=== PATIENT | female | born 1980 | race Caucasian/White ===

== ENCOUNTER 2018-07-12 10:47 | Outpatient (CLI) | payer OTHER | END 2018-07-12 23:59 | disposition home or self-care (01) | LOC: RAD 10:47 | PROVIDERS: ATTEND Chiropractor | DX: M51.16 Intervertebral disc disorders with radiculopathy, lumbar region (principal); M51.26 Other intervertebral disc displacement, lumbar region | CPT/HCPCS: 72148 ==

== ENCOUNTER 2018-12-14 09:45 | Outpatient (CLI) | payer OTHER ==
[~2018-12-14 09:45] MED LIST: HYDR-4353 PO; ONDA4TAB6 PO
== END 2018-12-14 23:59 | disposition home or self-care (01) ==
LOC: RAD 09:45
PROVIDERS: ATTEND Family Medicine
DX: N85.4 Malposition of uterus (principal)
CPT/HCPCS: 76830; 76856

== ENCOUNTER 2019-02-25 16:30 | Emergency (ER) | payer SELFPAY ==
[~2019-02-25] VITALS: Ht 167.6 cm; Wt 100.0 kg
[~2019-02-25 16:30] MED LIST changes: -HYDR-4353 PO
[2019-02-25 16:36] VITALS: BP 141/87
[2019-02-25] MEDS ORDERED: LIDOcaine 5% patch TP STA (16:52)
[2019-02-25] MEDS ORDERED: ketorolac tromethamine 15mg/ml inj. IM ONE (16:55)
[2019-02-25] MEDS ORDERED: CYCL-1 PO (17:06)
[2019-02-25] MEDS ORDERED: IBUP-1985 PO (17:06)
== END 2019-02-25 17:22 | disposition home or self-care (01) ==
LOC: ER 16:30
DX: M54.41 Lumbago with sciatica, right side (principal); G89.29 Other chronic pain; Z88.8 Allergy status to other drugs, medicaments and biological substances
CPT/HCPCS: 96372; 99283; J1885

== ENCOUNTER 2019-03-11 10:22 | Outpatient (CLI) | payer OTHER ==
[~2019-03-11 10:22] MED LIST changes: +CYCL-1 PO; +IBUP-1985 PO
== END 2019-03-11 23:59 | disposition home or self-care (01) ==
LOC: RAD 10:22
DX: M67.472 Ganglion, left ankle and foot (principal)
CPT/HCPCS: 73718

== ENCOUNTER 2019-04-15 11:12 | Emergency (ER) | payer OTHER ==
[~2019-04-15] VITALS: Ht 167.6 cm; Wt 105.0 kg
[2019-04-15 11:22] VITALS: BP 147/101
[2019-04-15 11:47] LABS: CLARITY,URINE SLIGHTLY CLOUDY (Clear); COLOR,URINE YELLOW (Yellow); GLUCOSE, URINE NEGATIVE (Neg); KETONES,URINE NEGATIVE (Neg); LEUKOCYTE ESTERASE ,URINE NEGATIVE (Neg); NITRITES, URINE NEGATIVE (Neg); OCCULT BLOOD,URINE NEGATIVE (Neg); PROTEIN,URINE NEGATIVE (Neg); UROBILINOGEN,URINE 0.2 E.U/dL (0.2-1.0)
[2019-04-15 11:53] LABS: UA COLLECTION TYPE CLN CATCH MIDSTREAM
[2019-04-15 11:59] LABS: MUCUS STRANDS FEW /LPF (Neg); SQUAMOUS EPITHELIAL CELL,UR MANY /LPF (FEW)
[2019-04-15 12:00] LABS: BACTERIA,URINE FEW /HPF (Neg); RBC,URINE NONE SEEN /HPF (0-2); WBC,URINE 0-4 /HPF (0-4)
[2019-04-15] MEDS ORDERED: ketorolac trometh. 30mg/ml inj. IM ONE (12:00)
[2019-04-15 12:02] LABS: BASOPHILS % (AUTO) 0.5 % (0-1); EOSINOPHILS # (AUTO) 0.3 X10'3 (0-0.9); EOSINOPHILS % (AUTO) 4.7 % (0-6); HEMATOCRIT 37.3 % (35.0-45.0); HEMOGLOBIN 12.9 g/dl (12.0-16.0); LYMPHOCYTES # (AUTO) 1.1 X10'3 (1.1-4.8); LYMPHOCYTES % (AUTO) 20.1 % (21-51); MEAN CORPUSCULAR HGB CONC 34.6 g/dL (33.0-36.5); MEAN CORPUSCULAR VOLUME 86.7 FL (78-98); MEAN PLATELET VOLUME 7.9 FL (7.4-10.4); MONOCYTES # (AUTO) 0.3 X10'3 (0-0.9); MONOCYTES % (AUTO) 5.1 % (2-12); NEUTROPHILS # (AUTO) 3.8 X10'3 (1.8-7.7); NEUTROPHILS % (AUTO) 69.6 % (42-75); PLATELET COUNT 164 X10'3 (140-440); RED CELL DISTRIBUTION WIDTH 13.1 % (11.5-14.5); WHITE BLOOD COUNT 5.5 X10'3 (4.5-11.0)
[2019-04-15 12:17] LABS: ALANINE AMINOTRANSFERASE 57 U/L (12-78); ALBUMIN 3.7 G/DL (3.4-5.0); ALBUMIN/GLOBULIN RATIO 1.1 (1.1-1.5); ALKALINE PHOSPHATASE 90 IU/L (46-116); ANION GAP 8 (8-16); ASPARTATE AMINO TRANSFERASE 40 U/L (10-37); BILIRUBIN,TOTAL 0.3 MG/DL (0.1-1.0); BLOOD UREA NITROGEN 12 MG/DL (7-18); BUN/CREATININE RATIO 14.8 (6.6-38.0); CHLORIDE 102 MMOL/L (99-107); CREATININE 0.81 MG/DL (0.40-0.90); GLUCOSE 113 MG/DL (70-104); POTASSIUM 4.2 MMOL/L (3.5-5.1); SODIUM 138 MMOL/L (135-145); TOTAL CARBON DIOXIDE 28.3 MMOL/L (24-32); TOTAL PROTEIN 7.1 G/DL (6.4-8.2); eGFR 79 ML/MIN
== END 2019-04-15 13:10 | disposition home or self-care (01) ==
LOC: ER 11:12
DX: R10.30 Lower abdominal pain, unspecified (principal); R35.0 Frequency of micturition; G89.29 Other chronic pain; Z98.890 Other specified postprocedural states; Z88.8 Allergy status to other drugs, medicaments and biological substances; Z79.899 Other long term (current) drug therapy
CPT/HCPCS: 36415; 76775; 80053; 81001; 85025; 96372; 99284; J1885

== ENCOUNTER 2019-10-08 10:10 | Day surgery (SDC) | payer OTHER ==
[2019-10-08] VITALS (10 sets, daily range): BP systolic 119–136; BP diastolic 68–89
[~2019-10-08] VITALS: Ht 167.6 cm; Wt 104.3 kg
[~2019-10-08 10:10] MED LIST changes: +ceFOXitin 1 GM/D5W 50mL IVPB 50 ML IV ONE; +dexamethasone sod phosphate 10mg/ml inj IV ONE; +famotidine 20mg tablet PO ONE; +ringers solution, lacted 1,000 ML IV SCH
[2019-10-08] MEDS ORDERED: NO HOME MEDS (11:43)
[2019-10-08 11:48] LABS: BASOPHILS % (AUTO) 0.6 % (0-1); EOSINOPHILS # (AUTO) 0.4 X10'3 (0-0.9); EOSINOPHILS % (AUTO) 8.6 % (0-6); LYMPHOCYTES % (AUTO) 40.4 % (21-51); MEAN CORPUSCULAR HEMOGLOBIN 29.8 PG (27.0-31.0); MEAN CORPUSCULAR VOLUME 87.5 FL (78-98); MEAN PLATELET VOLUME 8.3 FL (7.4-10.4); MONOCYTES # (AUTO) 0.3 X10'3 (0-0.9); MONOCYTES % (AUTO) 6.4 % (2-12); NEUTROPHILS # (AUTO) 2.1 X10'3 (1.8-7.7); PRE OP HEMATOCRIT 38.8 % (35.0-45.0); PRE OP HEMOGLOBIN 13.2 g/dL (12.0-16.0); PRE OP PLATELET COUNT 178 X10'3 (140-440); RED BLOOD COUNT 4.43 X10'6 (4.20-5.60)
[2019-10-08 11:57] LABS: HCG SERUM QL NEGATIVE
[2019-10-08 11:59] LABS: ALBUMIN 3.5 G/DL (3.4-5.0); ALBUMIN/GLOBULIN RATIO 0.9 (1.1-1.5); ALKALINE PHOSPHATASE 85 IU/L (46-116); BLOOD UREA NITROGEN 12 MG/DL (7-18); BUN/CREATININE RATIO 14.8 (6.6-38.0); CALCIUM 8.9 MG/DL (8.5-10.1); CHLORIDE 104 MMOL/L (99-107); CREATININE 0.81 MG/DL (0.40-0.90); PRE OP ALT 37 U/L (30-65); PRE OP ANION GAP 7 (8-16); PRE OP AST 26 U/L (10-37); PRE OP BILIRUB, TOTAL 0.5 MG/DL (0.0-1.0); PRE OP GLUCOSE 110 MG/DL (70-104); PRE OP POTASSIUM 4.1 MMOL/L (3.4-5.1); PRE OP SODIUM 139 MMOL/L (135-145); TOTAL PROTEIN 7.6 G/DL (6.4-8.2); eGFR 79 ML/MIN
[2019-10-08] MEDS ORDERED: midazolam 2 mg/2 ml injection ONE (12:41)
[2019-10-08] MEDS ORDERED: fentaNYL/PF 50MCG/1 ML 2ML syringe ONE (12:41)
[2019-10-08] MEDS ORDERED: LIDOcaine 2% (20mg/ml) 5ml vial ONE (12:42)
[2019-10-08] MEDS ORDERED: propofol inj 20 ML IV ONE (12:42)
[2019-10-08] MEDS ORDERED: ringers solution, lacted 1,000 ML IV SCH (12:46)
[2019-10-08] MEDS ORDERED: proCHLORperazine 10 MG/2 ml inj IV PRN (12:50)
[2019-10-08] MEDS ORDERED: morphine 4 MG/ML inj SYRINge IV PRN (12:50)
[2019-10-08] MEDS ORDERED: ondansetron/PF 4mg/2ml inj IV PRN (12:50)
[2019-10-08] MEDS ORDERED: morphine 2 MG/ML inj. syringe IV PRN (12:50)
[2019-10-08] MEDS ORDERED: meperidine/PF 25mg/ml syringe IV PRN ×3 (12:50)
[2019-10-08] MEDS ORDERED: dexamethasone sod phosphate 4mg/ml inj. ONE (12:52)
[2019-10-08] MEDS ORDERED: ondansetron/PF 4mg/2ml inj ONE (12:52)
[2019-10-08] MEDS ORDERED: sevoflurane 250ml liquid IH ONE (12:53)
[2019-10-08] MEDS ORDERED: BUPIVAcaine/PF 2.5 mg/ml (0.25%) 30ml vial ONE (13:07)
[2019-10-08] MEDS ORDERED: ketorolac trometh. 30mg/ml inj. ONE (13:28)
--- NOTE | 2019-10-08 13:37 | NUR ---
Received from OR via [facility], accompanied by Anesthesiologist DR WALLACE and report given by Anesthesiologist. PT DROWSY, DENIES PAIN, DUTCH PAD IN PLACE, CDI. Addendum: 10/08/19 at 1429 by Maite Blancas RN Amended: Links added.
--- NOTE | 2019-10-08 15:17 | NUR ---
D/C INSTRUCTIONS GIVEN AND GONE OVER W/PT WHO VERBALIZED UNDERSTANDING, PT D/CD TO HOME VIA W/C TO PRIVATE VEHICLE W/O INCIDENT. Addendum: 10/08/19 at 1533 by Maite Blancas RN Amended: Links added.
== END 2019-10-08 15:17 | disposition home or self-care (01) ==
LOC: PAS 10:10
PROVIDERS: ATTEND Specialist
DX: N85.7 Hematometra (principal); E66.9 Obesity, unspecified; Z68.37 Body mass index [BMI] 37.0-37.9, adult; Z88.8 Allergy status to other drugs, medicaments and biological substances; Z98.890 Other specified postprocedural states; Z79.899 Other long term (current) drug therapy; Z87.442 Personal history of urinary calculi
CPT/HCPCS: 36415; 58558; 80053; 84703; 85025; 86885; 86900; 86901; C1758; J0694; J1100; J1885; J2001; J2250; J2405; J2704; J3010; J3490; J7120; A4355; A4618; A7000

== ENCOUNTER 2020-11-04 15:54 | Emergency (ER) | payer BC, OTHER ==
[~2020-11-04] VITALS: Ht 167.6 cm; Wt 83.8 kg
[~2020-11-04 15:54] MED LIST changes: -CYCL-1 PO; -IBUP-1985 PO; +NO HOME MEDS; -ONDA4TAB6 PO; -ceFOXitin 1 GM/D5W 50mL IVPB 50 ML IV ONE; -dexamethasone sod phosphate 10mg/ml inj IV ONE; -famotidine 20mg tablet PO ONE; -ringers solution, lacted 1,000 ML IV SCH
[2020-11-04 18:33] VITALS: BP 140/102
== END 2020-11-04 18:44 | disposition home or self-care (01) ==
LOC: ER 15:55
DX: M54.32 Sciatica, left side (principal); M54.5 Low back pain; G89.29 Other chronic pain; Z87.442 Personal history of urinary calculi; Z98.890 Other specified postprocedural states; Z88.8 Allergy status to other drugs, medicaments and biological substances
CPT/HCPCS: 99282